=== PATIENT | female | born 1980 | race Caucasian/White ===

== ENCOUNTER 2017-02-08 23:08 | Emergency (ER) | payer BC ==
[~2017-02-08] VITALS: Ht 172.7 cm; Wt 74.3 kg
[~2017-02-08 23:08] MED LIST: Motrin PO
[2017-02-09 01:00] LABS: HEMATOCRIT 38.4 % (36.0-46.0); MCH 28.6 PG (29.0-34.0); MCHC 33.9 G/DL (30.0-36.0); MCV 84.4 FL (83-99); MEAN PLAT.VOLUME 11.5 uM^3 (9.5-12.4); PLATELET COUNT 123 K/uL (156-360); RBC DIS.WIDTH-SD 36.9 % (39-53); RED BLOOD COUNT 4.55 M/uL (3.80-5.20)
[2017-02-09 01:10] LABS: CHLORIDE 103 mEq/L (99-109); POTASSIUM 3.5 mEq/L (3.7-5.4); SODIUM 137 mEq/L (136-147)
[2017-02-09 01:12] LABS: GLUCOSE 118 mg/dL (70-99)
[2017-02-09 01:13] LABS: ANION GAP 10 MEQ/L (2-14)
[2017-02-09 01:16] LABS: GFR ESTIMATE (CALCULATED) > 59 mL/min/; UREA NITROGEN (BUN) 9 mg/dL (9-23)
[2017-02-09 01:25] LABS: QUANTITATIVE HCG < 4.0 MIU/ML
[2017-02-09] MEDS ORDERED: FIORICET,ESG1 TABLET PO (03:27)
[2017-02-09 04:37] VITALS: BP 109/70
[2017-02-10] MEDS ORDERED: ZOFRAN4 MG PO (22:36)
[2017-02-10] MEDS ORDERED: MOTRIN800 MG PO (22:37)
== END 2017-02-09 04:38 | disposition home or self-care (01) ==
LOC: EME 23:08 → EXP 23:08
PROVIDERS: Physician Assistant
DX: R51 Headache (principal); H65.92 Unspecified nonsuppurative otitis media, left ear
CPT/HCPCS: 70450; 80048; 84702; 85027; 99281; 99284; J1100; J1200; J2765; J7030

== ENCOUNTER 2017-02-10 18:28 | Emergency (ER) | payer BC ==
[~2017-02-10] VITALS: Ht 172.7 cm; Wt 74.4 kg
[~2017-02-10 18:28] MED LIST changes: +FIORICET,ESG1 TABLET PO
[2017-02-10 19:26] LABS: HEMATOCRIT 39.8 % (36.0-46.0); MCH 28.3 PG (29.0-34.0); MCHC 33.7 G/DL (30.0-36.0); MCV 84.1 FL (83-99); MEAN PLAT.VOLUME 11.2 uM^3 (9.5-12.4); PLATELET COUNT 175 K/uL (156-360); RBC DIS.WIDTH-SD 36.8 % (39-53); RED BLOOD COUNT 4.73 M/uL (3.80-5.20)
[2017-02-10 19:30] LABS: CHLORIDE 104 mEq/L (99-109); SODIUM 138 mEq/L (136-147)
[2017-02-10 19:33] LABS: GLUCOSE 94 mg/dL (70-99)
[2017-02-10 19:34] LABS: ANION GAP 9 MEQ/L (2-14)
[2017-02-10 19:35] LABS: TOTAL BILIRUBIN 0.3 mg/dL (0.0-1.0)
[2017-02-10 19:36] LABS: ALKALINE PHOSPHATASE 65 IU/L (3-129); GFR ESTIMATE (CALCULATED) > 59 mL/min/
[2017-02-10 19:37] LABS: UREA NITROGEN (BUN) 10 mg/dL (9-23)
[2017-02-10 19:47] LABS: QUANTITATIVE HCG < 4.0 MIU/ML
[2017-02-10 20:22] LABS: ADD MIUA? NO; BILIRUBIN NEGATIVE; BLOOD NEGATIVE; COLOR STRAW ((YELLOW)); GLUCOSE (STRIP) NEGATIVE; KETONES NEGATIVE; LEUKOCYTES NEGATIVE; NITRITE NEGATIVE; PROTEIN (STRIP) NEGATIVE; SPECIFIC GRAVITY 1.005 (1.000-1.030); UCUL ADDED? NO; UROBILINOGEN 0.2 MG/DL (0.2-1.0)
[2017-02-10] MEDS ORDERED: ZOFRAN4 MG PO (22:36)
[2017-02-10] MEDS ORDERED: MOTRIN800 MG PO (22:37)
[2017-02-10 23:40] VITALS: BP 114/74
[2017-02-14 14:17] LABS: LYME DISEASE SEROLOGY SCREEN NEGATIVE (NEGATIVE)
== END 2017-02-10 23:41 | disposition home or self-care (01) ==
LOC: EME 18:28
PROVIDERS: Nurse Practitioner Family
DX: R51 Headache (principal)
CPT/HCPCS: 80053; 81003; 84702; 85027; 86618; 99281; 99284; J1100; J1200; J1885; J2405; J7030